=== PATIENT | male | born 1945 | race Caucasian/White ===

== ENCOUNTER → 2024-02-26 08:03 | Outpatient (REF) | payer MEDICARE, OTHER, SELFPAY | LOC: RCS 08:03 | PROVIDERS: ATTENDING PHYSICIAN Internal Medicine Cardiovascular Disease; FAMILY PHYSICIAN Nurse Practitioner Family | DX: I48.91 Unspecified atrial fibrillation (principal) | CPT/HCPCS: 93306 ==

== ENCOUNTER → 2024-03-08 09:18 | Outpatient (REF) | payer MEDICARE, OTHER, SELFPAY ==
[2024-03-08 10:25] LABS: % Basophils 0.4 % (0-2); % Eosinophils 3.2 % (0-6); % Immature Granulocytes 0.5 % (0-0.5); % Lymphocytes 30.5 % (20.5-51.1); % Monocytes 7.4 % (1.7-9.3); Absolute Eosinophils 0.2 10^3/uL (0-0.7); Absolute Lymphocytes 1.7 10^3/uL (1.2-3.4); Absolute Monocytes 0.4 10^3/uL (0.1-0.6); Absolute Neutrophils 3.3 10^3/uL (1.4-6.5); Hematocrit 42.7 % (39.0-52.0); Hemoglobin 14.7 g/dL (13.0-18.0); Mean Corp Hgb Conc. 34.4 g/dL (33.0-37.0); Mean Corpuscular Hgb 30.3 pg (27.0-31.0); Mean Platelet Volume 8.8 fL (7.4-10.4); Nucleated Red Blood Cells % 0 % (-); Platelet Count 158 10^3/uL (130-400); Red Blood Cell Count 4.85 10^6/uL (4.70-6.10); Red Cell Dist. Width 13.8 % (11.5-14.5); White Blood Cell Count 5.7 10^3/uL (4.8-10.8)
[2024-03-08 12:53] LABS: TSH Reflex To Free T4 1.74 uIU/ml (0.47-4.68)
[2024-03-08 12:55] LABS: ALT (SGPT) 19 U/L (0-50); AST (SGOT) 21 U/L (17-59); Albumin 4.3 g/dl (3.5-5.0); Alkaline Phosphatase 83 U/L (38-126); Blood Urea Nitrogen 21 mg/dl (9-20); Calcium 9.4 mg/dl (8.4-10.2); Carbon Dioxide 26 mmol/L (22-30); Chloride 108 mmol/L (98-107); Glucose 98 mg/dl (70-99); HDL Cholesterol 41 mg/dl; LDL Cholesterol, Calculated 116 mg/dl; Sodium 139 mmol/L (135-145); Total Bilirubin 0.6 mg/dl (0.2-1.3); Total Cholesterol 183 mg/dl (50-199); Total Protein 7.2 g/dl (6.3-8.2); Triglyceride 130 mg/dl (10-149); Very Low Density Lipoprotein 26 mg/dl (0-30); eGFR > 60.00
== END ==
LOC: REG 09:18
PROVIDERS: ATTENDING PHYSICIAN Nurse Practitioner Family
DX: Z00.00 Encounter for general adult medical examination without abnormal findings (principal); E78.2 Mixed hyperlipidemia; Z13.29 Encounter for screening for other suspected endocrine disorder
CPT/HCPCS: 36415; 80053; 80061; 84443; 85025

== ENCOUNTER 2024-08-31 14:18 | Emergency (ER) | payer MEDICARE, OTHER, SELFPAY ==
[2024-08-31 14:22] VITALS: BP 167/93
[2024-08-31 15:11] VITALS: BMI 33.6
--- NOTE | 2024-08-31 15:18 | ED.MUSCINJ ---
HPI-Injury
General
Chief Complaint: Musculo-Skeletal Complaint
Source: patient
Exam Limitations: none
Time Seen by Provider: 08/31/24 15:05
Nursing documentation reviewed up to this point in time: agreed with
History of Present Illness-Injury
Is this injury a work related problem?: No
Is pt an associate of [facility]?: No
Initial Injury comments:
Patient states he was carrying newspapers in both arms, tripped on curb. Denies hitting his head. Able to get self up, able to ambulate without assistance. Fall occurred approx 1 week ago. To ED today for eval of large 'lump' on left lateral hip.
Past History
Past History
ED Past Medical History: Arrthythmia (Atrial fibrillation, status post ablation 2008)
ED Past Surgical History: Cardiac (A. fib ablation 2008), Orthopedic (L5 laminectomy) and Other (Hernia repair)
Social History
Tobacco: Non-smoker
Alcohol: Occasional
Personal:
Living: with family
Employment: Retired
Family History
Family History: Other (Noncontributory)
Review of Systems
Review of Systems
Allergies reviewed?: Yes
All Other Systems: ROS reviewed and negative except as documented in HPI and ROS
Constitutional: Reports no symptoms
EENT: Reports no symptoms
Respiratory: Reports no symptoms
Cardiac: Reports no symptoms
ABD/GI: Reports no symptoms
Musculoskeletal: Reports other (Hematomal left lateral hip)
Skin: Reports other (bruising to left thigh, Hematoma left lateral hip)
Neurological: Reports no symptoms
Psychiatric: Reports no symptoms
Musculoskeletal Injury Exam
Musculoskeletal Injury Exam
Left Hip:
Pain with Movement?: None
Tender to palpation?: Moderate
Soft tissue swelling?: Moderate
External deformity and angulation?: None
Joint effusion?: None
Contusion?: Moderate
Hematoma-local bleeding into tissue?: Moderate
Strain- Sprain- Tear (Connective tissue injury)?: None
Crepitus with movement?: No
Joint instability?: No
Malalignment/deformity?: No
Range of motion: Full
Distal skin color and temperature: normal-warm & good color
Capillary Refill: normal
Normal distal neurovascular exam?: Yes
Phy Exam
General Physical Exam
General Presentation: well appearing and no apparent distress
General age: appears stated age
General Skin: warm and dry
General Habitus: normal
General Mental: alert
Musculoskeletal Exam
Musculoskeletal Exam: full ROM and neuro vasc intact
Skin Exam
Skin Exam: normal color, warm/dry and no rash
Psychiatric Exam
Psychiatric Exam: normal mood/affect
Injury Course
Orders/Labs/Results
Orders:
Orders
08/31/24 14:28
CR Hip - LT w/wo Pel 2-3 Vw* Urgent
Comment:
Reason For Exam: fall, pain
Include a pelvis x-ray?: Yes
MDM/Problems Addressed
Differential Diagnosis Includes:
Patient to ED for eval of swelling to left lateral hip afeter fall 1 week ago. He has full nonpainful ROM to LLE, ambulates without difficulty. Takes 81mg ASA daily, no other thinners. Xray reviewed, no evidence of fracture or dislocation.
Inspection reveals large hematoma to his left lat hip, old bruising to left thigh. Recommend heat to hematoma. He is discharged home and will follow up with PCP. Differential to include but not limited to hip fx/dislocation, cellulitis,
sprain/strain.
*Radiology
Radiology exam reviewed: radiology read reviewed
*Pulse Oximetry
Patient hypoxic: no
*Critical Care Note
Total Time (30-74mins, 75-104mins- exclusive of procedures): Not Applicable
ED Attending Note
-
Portions of this chart may have been created with voice recognition software.� Occasional wrong word or��sound alike� substitutions may have occurred due to the inherent limitations of voice recognition software.
Discharge Plan
Departure
Patient Disposition: Home (Routine Discharge)
Date of Disposition: 08/31/24
Time of Disposition: 15:19
Patient with high blood pressure during this ER visit?: No
Condition: Good
Covid-19: Not Applicable
Discharge Problem:
Contusion of hip
Instructions: Taking care of bruises, Hematoma
Prescriptions:
No Action
metoprolol succinate 25 MG tablet extended release 24 hr
25 mg PO DAILY Qty: 30 11RF
rivaroxaban [Xarelto] 20 MG tablet
20 mg PO QPM Qty: 30 11RF
Referrals:
Samia King CRNP [Family Provider] - Follow up in 2-3 days
Activity Restrictions/Additional Instructions:
Apply heat to the lump on your left hip 15-20 minutes at a time, 4-5 times daily.
Interventions
Interventions:
*Risk Screen - Suicide Last Done: 08/31/24 14:22
*General Assessment Last Done: 08/31/24 14:22
*Neglect/Abuse Screening Last Done: 08/31/24 15:11
ED- Fall Risk Assessment Last Done: 08/31/24 15:11
*ED COVID-19 Vaccine History Last Done: 08/31/24 14:22
ED-Musculoskeletal Assessment Last Done: 08/31/24 15:11
Discharge Date and Time
Print Language: AMHARIC
== END 2024-08-31 15:31 | disposition home or self-care (01) ==
LOC: EMR 14:18
PROVIDERS: EMERGENCY PHYSICIAN Emergency Medicine; FAMILY PHYSICIAN Nurse Practitioner Family
DX: S70.02XA Contusion of left hip, initial encounter (principal); W01.0XXA Fall on same level from slipping, tripping and stumbling without subsequent striking against object, initial encounter
CPT/HCPCS: 99283; 73502